=== PATIENT | female | born 1970 | race Caucasian/White ===

== ENCOUNTER 2022-01-19 14:18 | Inpatient (IN) | payer OTHER, BC ==
[~2022-01-19] VITALS: Ht 157.5 cm; Wt 86.2 kg
[2022-01-19 14:50] LABS: HEMOGLOBIN 12.6 gm/dl (12.3-15.3); RED BLOOD COUNT 3.77 M/UL (4.00-5.10); WHITE BLOOD COUNT 24.7 K/UL (4.5-11.0)
[2022-01-19 15:32] LABS: BUN/CREATININE RATIO 17 (0-10)
[2022-01-20 05:08] LABS: HEMOGLOBIN 11.7 gm/dl (12.3-15.3); RED BLOOD COUNT 3.57 M/UL (4.00-5.10); WHITE BLOOD COUNT 22.1 K/UL (4.5-11.0)
[2022-01-20 05:33] LABS: BUN/CREATININE RATIO 13 (0-10)
[2022-01-20] MEDS ORDERED: FLONASE 0.05% N16 GM (11:38)
[2022-01-20] MEDS ORDERED: MONTELUKAST SOD10 MG PO (11:39)
[2022-01-20] MEDS ORDERED: PROVENTIL HFA6.7 GM INH (11:40)
[2022-01-20] MEDS ORDERED: METFORMIN HCL500 MG PO (11:41)
[2022-01-20] MEDS ORDERED: PROZAC20 MG PO (11:44)
[2022-01-20] MEDS ORDERED: PROTONIX40 MG PO (12:01)
[2022-01-20] MEDS ORDERED: ROPINIROLE HCL2 MG PO (12:01)
--- NOTE | 2022-01-20 20:03 | NUR ---
ASSESSMENT COMPLETED CHARTED. ALL QUESTIONS AND CONCERNS ADDRESSED. EDUCATION MATERIAL ON ADULT SEPSIS PROVIDED ORDERED PER DR BUNDY.
[2022-01-21 03:50] LABS: HEMOGLOBIN 11.3 gm/dl (12.3-15.3); RED BLOOD COUNT 3.52 M/UL (4.00-5.10); WHITE BLOOD COUNT 19.3 K/UL (4.5-11.0)
[2022-01-21 08:29] LABS: BUN/CREATININE RATIO 17 (0-10)
[2022-01-22 04:28] LABS: BUN/CREATININE RATIO 22 (0-10)
[2022-01-22 14:12] LABS: ORGANISM ID Not indicated. (.); SPECIMEN SOURCE Urine (.); STREPTOCOCCUS PNEUMONIAE AG Negative (Negative)
[2022-01-23 08:31] LABS: BUN/CREATININE RATIO 20 (0-10)
[2022-01-23 13:09] LABS: ANTI-DSDNA ANTIBODIES <1 IU/mL (0-9)
[2022-01-23 14:11] LABS: ATYPICAL PANCA <1:20 titer (Neg:<1:20); CYTOPLASMIC (C-ANCA) <1:20 titer (Neg:<1:20); PERINUCLEAR (P-ANCA) <1:20 titer (Neg:<1:20)
[2022-01-24 07:12] LABS: BUN/CREATININE RATIO 19 (0-10)
[2022-01-25] MEDS ORDERED: PREDNISONE 20 M20 MG PO (10:02)
[2022-01-25] MEDS ORDERED: COMBIVENT RESPIM4 GM INH (10:02)
[2022-01-25] MEDS ORDERED: SYMBICORT 160-1 INHA INH (10:02)
[2022-01-25] MEDS ORDERED: NICOTINE PATCH1 EAC1 TD (10:16)
== END 2022-01-25 11:50 | disposition home or self-care (01) | DRG 871 ==
LOC: ER1 14:18 → CDU 17:11 → CCU 17:11 → M/S 19:00 → CCU 20:06 → M/S 01-23 17:29
PROVIDERS: Internal Medicine Infectious Disease; Internal Medicine Pulmonary Disease; Physician Assistant Medical; ADMIT Internal Medicine
PROC: 3E03329 Introduction of Other Anti-infective into Peripheral Vein, Percutaneous Approach (ICD-10-PCS; principal; 2022-01-19)
PROC: 5A09357 Assistance with Respiratory Ventilation, Less than 24 Consecutive Hours, Continuous Positive Airway Pressure (ICD-10-PCS; 2022-01-19)
PROC: 5A0945A Assistance with Respiratory Ventilation, 24-96 Consecutive Hours, High Flow/Velocity Cannula (ICD-10-PCS; 2022-01-20)
PROC: B24BZZZ Ultrasonography of Heart with Aorta (ICD-10-PCS; 2022-01-20)
DX: A41.9 Sepsis, unspecified organism (principal); J15.9 Unspecified bacterial pneumonia; J96.21 Acute and chronic respiratory failure with hypoxia; J44.0 Chronic obstructive pulmonary disease with (acute) lower respiratory infection; E87.1 Hypo-osmolality and hyponatremia; E87.2 Acidosis; J44.1 Chronic obstructive pulmonary disease with (acute) exacerbation; N30.00 Acute cystitis without hematuria; E78.5 Hyperlipidemia, unspecified; I10 Essential (primary) hypertension; M81.0 Age-related osteoporosis without current pathological fracture; J30.9 Allergic rhinitis, unspecified; Z96.641 Presence of right artificial hip joint; R65.20 Severe sepsis without septic shock; Z96.652 Presence of left artificial knee joint; F17.210 Nicotine dependence, cigarettes, uncomplicated; F31.9 Bipolar disorder, unspecified; G47.33 Obstructive sleep apnea (adult) (pediatric); G25.81 Restless legs syndrome; B96.1 Klebsiella pneumoniae [K. pneumoniae] as the cause of diseases classified elsewhere; E87.6 Hypokalemia; E66.3 Overweight; K21.9 Gastro-esophageal reflux disease without esophagitis; E11.65 Type 2 diabetes mellitus with hyperglycemia; Z82.49 Family history of ischemic heart disease and other diseases of the circulatory system; Z83.3 Family history of diabetes mellitus; Z99.81 Dependence on supplemental oxygen; Z98.890 Other specified postprocedural states; Z90.710 Acquired absence of both cervix and uterus; Z87.11 Personal history of peptic ulcer disease; Z90.49 Acquired absence of other specified parts of digestive tract; Z79.82 Long term (current) use of aspirin; Z79.899 Other long term (current) drug therapy
CPT/HCPCS: ECHO; 0240U; 36415; 36600; 71045; 80048; 80053; 81001; 82550; 82553; 82803; 82962; 83036; 83605; 83735; 83880; 84132; 84484; 85025; 85027; 85379; 86038; 86140; 86225; 86256; 86331; 86602; 86609; 86671; 87040; 87077; 87081; 87086; 87186; 87278; 87880; 87899; 93005; 93306; 94640; 94660; 94664; 94760; 96374; 96375; 99285; C9113; J0456; J0696; J1205; J1650; J2185; J2920; J2930; J3475; J7030; J7070